=== PATIENT | male | born 1975 | race Two or more races ===

== ENCOUNTER 2020-03-23 01:54 | Inpatient (IN) | payer OTHER ==
[~2020-03-23] VITALS: Ht 182.9 cm; Wt 63.6 kg
[2020-03-23] MEDS ORDERED: OLAN5TAB30 PO (02:18)
[2020-03-23] MEDS ORDERED: FOLI0.4T91 PO (02:19)
[2020-03-23] MEDS ORDERED: THIA100T92 PO (02:19)
[2020-03-23 03:05] LABS: BASOPHILS % (AUTO) 0.8 % (0.0-2.0); EOSINOPHILS % (AUTO) 6.2 % (1.0-6.0); HEMATOCRIT 36.7 % (41-53); HEMOGLOBIN 11.9 g/dL (13.5-17.5); LYMPHOCYTES # (AUTO) 1.5 K/uL (1.0-4.8); LYMPHOCYTES % (AUTO) 37.4 % (22.0-44.0); MEAN CORPUSCULAR HEMOGLOBIN 24.7 pg (26.0-34.0); MEAN CORPUSCULAR HGB CONC 32.5 G/dL (31.0-37.0); MEAN CORPUSCULAR VOLUME 76 fL (80-100); MONOCYTES # (AUTO) 0.4 K/uL (0.1-1.0); MONOCYTES % (AUTO) 9.3 % (2.0-9.0); NEUTROPHILS # (AUTO) 1.9 K/uL (1.8-7.7); NEUTROPHILS % (AUTO) 46.3 % (40.0-70.0); PLATELET COUNT (AUTO) 177 K/uL (150-450); RED BLOOD CELL COUNT(AUTO) 4.83 MIL/uL (4.50-5.90); RED CELL DISTRIBUTION WIDTH 22.9 % (11.5-14.5)
[2020-03-23 03:06] LABS: ANION GAP 5 mmol/L (8-16); CALCIUM, TOTAL 9.3 mg/dL (8.8-10.5); CARBON DIOXIDE 31 mmol/L (22-29); CHLORIDE 103 mmol/L (98-107); CREATININE 1.14 mg/dL (0.60-1.30); GLOMERULAR FILTR. RATE CALC > 60 mL/min (>60); GLUCOSE,RANDOM 115 mg/dL (70-110); POTASSIUM 3.6 mmol/L (3.5-5.1); SODIUM SERUM 139 mmol/L (136-145); UREA NITROGEN, BLOOD 12 mg/dL (7-18)
[2020-03-23 03:12] LABS: ALANINE AMINOTRANSFERASE 18 U/L (12-78); ALBUMIN 3.7 g/dL (3.4-5.0); ALKALINE PHOSPHATASE 77 U/L (46-116); ASPARTATE AMINOTRANSFERASE 16 U/L (15-37); BILIRUBIN,TOTAL 0.4 mg/dL (0.1-1.0)
[2020-03-23] MEDS ORDERED: ACETAMINOPHEN 500 MG TABLET PO ONE (03:45)
[2020-03-23] MEDS ORDERED: 0.9% SODIUM CHLORIDE 10 ML SYRINGE IVP PRN (04:30)
[2020-03-23] MEDS ORDERED: ONDANSETRON HCL 4 MG/2 ML VIAL IVP PRN (04:30)
[2020-03-23] MEDS ORDERED: ACETAMINOPHEN 325 MG TABLET PO PRN ×2 (04:30→06:45)
[2020-03-23] MEDS ORDERED: DOCUSATE SODIUM 100 MG CAPSULE PO PRN (06:45)
[2020-03-23] MEDS ORDERED: MAGNESIUM HYDROXIDE SUSPENSION 30 ML UDCUP PO PRN (06:45)
[2020-03-23] MEDS ORDERED: MAG HYDROX/AL HYDROX/SIMETH ES 30 ML SUSPENSION UDCUP PO PRN (06:45)
[2020-03-23] MEDS ORDERED: IBUPROFEN 400 MG TABLET PO PRN (06:45)
[2020-03-23] MEDS ORDERED: GuaiFENesin/D-METHORPHAN [SUGAR-FREE] 200-20MG/10 ML SYRUP UDCUP PO PRN (06:45)
[2020-03-23] MEDS ORDERED: NICOTINE 14 MG/24 HOUR PATCH TD PRN (06:45)
[2020-03-23] MEDS ORDERED: ONDANSETRON HCL 4 MG TABLET PO PRN (06:45)
[2020-03-23] MEDS ORDERED: LOPERAMIDE HCL 2 MG CAPSULE PO PRN (06:45)
[2020-03-23] MEDS ORDERED: ALBUTEROL SULFATE HFA 90 MCG/PUFF 8 GM INHALER IH PRN (06:45)
[2020-03-23] MEDS ORDERED: CloNIDine HCL 0.1 MG TABLET PO PRN (06:45)
[2020-03-23] MEDS ORDERED: PETROLATUM,WHITE 28 GM JELLY TP PRN (06:45)
[2020-03-23] MEDS ORDERED: MAGNESIUM SULFATE 2 GM, MVI, ADULT NO.1 WITH VIT K 10 ML, THIAMINE 100 MG, FOLIC ACID 1... IV ONE ×5 (09:15)
[2020-03-23 15:46] VITALS: BP 106/70
[2020-03-23 19:55] VITALS: BP 113/60
[2020-03-23] MEDS: OLANZapine 10 MG TABLET PO SCH (21:24)
[2020-03-23] MEDS: MIRTAZAPINE 15 MG TABLET PO SCH (21:24)
[2020-03-24 04:58] VITALS: BP 96/54
[2020-03-24 06:42] LABS: BASOPHILS % (AUTO) 1.1 % (0.0-2.0); EOSINOPHILS % (AUTO) 4.3 % (1.0-6.0); HEMATOCRIT 32.9 % (41-53); HEMOGLOBIN 10.8 g/dL (13.5-17.5); LYMPHOCYTES # (AUTO) 1.8 K/uL (1.0-4.8); LYMPHOCYTES % (AUTO) 40.2 % (22.0-44.0); MEAN CORPUSCULAR HEMOGLOBIN 25.2 pg (26.0-34.0); MEAN CORPUSCULAR VOLUME 76 fL (80-100); MONOCYTES # (AUTO) 0.4 K/uL (0.1-1.0); MONOCYTES % (AUTO) 9.3 % (2.0-9.0); NEUTROPHILS % (AUTO) 45.1 % (40.0-70.0); PLATELET COUNT (AUTO) 172 K/uL (150-450); RED BLOOD CELL COUNT(AUTO) 4.31 MIL/uL (4.50-5.90)
[2020-03-24 07:32] LABS: ALANINE AMINOTRANSFERASE 16 U/L (12-78); ALBUMIN 2.9 g/dL (3.4-5.0); ALKALINE PHOSPHATASE 62 U/L (46-116); ANION GAP 3 mmol/L (8-16); ASPARTATE AMINOTRANSFERASE 13 U/L (15-37); BILIRUBIN,TOTAL 0.2 mg/dL (0.1-1.0); CALCIUM, TOTAL 8.5 mg/dL (8.8-10.5); CARBON DIOXIDE 30 mmol/L (22-29); CHLORIDE 105 mmol/L (98-107); CHOL/HDL RATIO 3.5 (4.2-7.3); CHOLESTEROL 115 mg/dL (131-200); CREATININE 0.92 mg/dL (0.60-1.30); GLOMERULAR FILTR. RATE CALC > 60 mL/min (>60); GLUCOSE,RANDOM 98 mg/dL (70-110); HDL CHOLESTEROL 33 mg/dL (40-60); LDL CHOL (CALC.) 73 mg/dL (0-130); SODIUM SERUM 138 mmol/L (136-145); THYROID STIMULATING HORMONE 1.47 uIU/mL (0.36-3.74); TOTAL PROTEIN, SERUM 6.3 g/dL (6.4-8.2); TRIGLYCERIDES 43 mg/dL (15-150); UREA NITROGEN, BLOOD 9 mg/dL (7-18)
[2020-03-24 07:34] LABS: HEMOGLOBIN A1C 5.8 % (3.8-5.6)
[2020-03-24 08:46] VITALS: BP 88/54
[2020-03-24] MEDS ORDERED: SODIUM CHLORIDE 0.9% 250 ML IV ONE (09:00)
[2020-03-24 10:17] VITALS: BP 124/57
[2020-03-24 19:33] VITALS: BP 107/56
[2020-03-24] MEDS: OLANZapine 10 MG TABLET PO SCH (19:56)
[2020-03-24] MEDS: MIRTAZAPINE 15 MG TABLET PO SCH (19:56)
[2020-03-25 04:51] VITALS: BP 89/52
[2020-03-25 04:53] VITALS: BP 87/52
[2020-03-25 04:55] VITALS: BP 85/36
[2020-03-25 08:00] VITALS: BP 91/60
[2020-03-25] MEDS: MULTIVITAMINS WITH MINERALS, THERAPEUTIC TABLET PO SCH (08:10)
[2020-03-25 15:51] VITALS: BP 109/63
[2020-03-25 20:00] VITALS: BP 100/61
[2020-03-25] MEDS: OLANZapine 10 MG TABLET PO SCH (21:00)
[2020-03-25] MEDS: MIRTAZAPINE 15 MG TABLET PO SCH (21:00)
[2020-03-26 05:30] VITALS: BP 104/58
[2020-03-26 07:21] VITALS: BP 100/75
[2020-03-26] MEDS: MULTIVITAMINS WITH MINERALS, THERAPEUTIC TABLET PO SCH (08:36)
[2020-03-26 16:47] VITALS: BP 105/65
[2020-03-26] MEDS: MIRTAZAPINE 15 MG TABLET PO SCH (20:17)
[2020-03-26] MEDS: OLANZapine 10 MG TABLET PO SCH (20:17)
[2020-03-26 20:40] VITALS: BP 93/61
[2020-03-27 07:40] VITALS: BP 99/69
[2020-03-27] MEDS: MULTIVITAMINS WITH MINERALS, THERAPEUTIC TABLET PO SCH (09:21)
[2020-03-27] MEDS: OLANZapine 10 MG TABLET PO SCH (20:04)
[2020-03-27] MEDS: MIRTAZAPINE 15 MG TABLET PO SCH (20:04)
[2020-03-27 20:05] VITALS: BP 98/64
[2020-03-28 08:01] VITALS: BP 134/50
[2020-03-28] MEDS: MULTIVITAMINS WITH MINERALS, THERAPEUTIC TABLET PO SCH (08:27)
[2020-03-28 15:35] VITALS: BP 95/55
[2020-03-28] MEDS: MIRTAZAPINE 15 MG TABLET PO SCH (19:55)
[2020-03-28] MEDS: OLANZapine 10 MG TABLET PO SCH (19:55)
[2020-03-28 20:28] VITALS: BP 96/56
[2020-03-29 07:40] VITALS: BP 97/57
[2020-03-29] MEDS: MULTIVITAMINS WITH MINERALS, THERAPEUTIC TABLET PO SCH (08:16)
[2020-03-29] MEDS ORDERED: OLAN10TA6 PO (14:33)
[2020-03-29 17:40] VITALS: BP 104/55
[2020-03-29] MEDS: OLANZapine 10 MG TABLET PO SCH (20:06)
[2020-03-29] MEDS: MIRTAZAPINE 15 MG TABLET PO SCH (20:07)
[2020-03-29 20:10] VITALS: BP 106/63
[2020-03-30 05:47] VITALS: BP 96/59
[2020-03-30 07:40] VITALS: BP 106/55
[2020-03-30] MEDS: MULTIVITAMINS WITH MINERALS, THERAPEUTIC TABLET PO SCH (08:05)
[2020-03-30 20:04] VITALS: BP 86/58
[2020-03-30] MEDS: MIRTAZAPINE 15 MG TABLET PO SCH (20:50)
[2020-03-30] MEDS: OLANZapine 10 MG TABLET PO SCH (20:50)
[2020-03-31 05:51] VITALS: BP 106/51
[2020-03-31 07:25] VITALS: BP 100/65
[2020-03-31] MEDS: MULTIVITAMINS WITH MINERALS, THERAPEUTIC TABLET PO SCH (08:22)
[2020-03-31 20:05] VITALS: BP 97/57
[2020-03-31 20:06] VITALS: BP 110/62
[2020-03-31] MEDS: MIRTAZAPINE 15 MG TABLET PO SCH (20:17)
[2020-03-31] MEDS: OLANZapine 10 MG TABLET PO SCH (20:17)
[2020-04-01] MEDS: MULTIVITAMINS WITH MINERALS, THERAPEUTIC TABLET PO SCH (08:07)
[2020-04-01 08:39] VITALS: BP 102/65
[2020-04-01 16:24] VITALS: BP 96/55
[2020-04-01] MEDS: OLANZapine 10 MG TABLET PO SCH (20:19)
[2020-04-01] MEDS: MIRTAZAPINE 15 MG TABLET PO SCH (20:19)
[2020-04-01 20:44] VITALS: BP 108/60
[2020-04-02 08:09] VITALS: BP 98/55
[2020-04-02] MEDS: MULTIVITAMINS WITH MINERALS, THERAPEUTIC TABLET PO SCH (08:29)
[2020-04-02] MEDS ORDERED: MIRT-89 PO (10:10)
[2020-04-02] MEDS ORDERED: MULT1CAP36 PO (10:15)
[2020-04-02] MEDS ORDERED: ACET-784 PO (10:16)
[2020-04-02] MEDS ORDERED: ALBU8HFA IH (10:17)
[2020-04-02] MEDS ORDERED: DOCU-275 PO (10:18)
[2020-04-02] MEDS ORDERED: NICO-703 TD (10:19)
[2020-04-02 10:45] VITALS: BP 101/60
[2020-04-02 16:10] VITALS: BP 110/59
[2020-04-02] MEDS: OLANZapine 10 MG TABLET PO SCH (20:16)
[2020-04-02] MEDS: MIRTAZAPINE 15 MG TABLET PO SCH (20:17)
[2020-04-02 20:50] VITALS: BP 107/59
[2020-04-03 05:40] VITALS: BP 91/56
[2020-04-03 07:52] VITALS: BP 97/56
[2020-04-03] MEDS: MULTIVITAMINS WITH MINERALS, THERAPEUTIC TABLET PO SCH (08:33)
== END 2020-04-03 08:55 | DRG 880 ==
LOC: EMS 01:58 → 6S 06:39 → UNDOADMIN 15:15 → 6S 15:15
PROVIDERS: ADMIT Internal Medicine; ATTEND Internal Medicine
DX: R45.851 Suicidal ideations (principal); F29 Unspecified psychosis not due to a substance or known physiological condition; I95.9 Hypotension, unspecified; Z72.4 Inappropriate diet and eating habits; E86.0 Dehydration; F22 Delusional disorders; F94.0 Selective mutism
CPT/HCPCS: 83036; 84443; G0480; J3411; J3475; J3490; J7030; J7050